=== PATIENT | male | born 1970 | race American Indian/Alaskan Native ===

== ENCOUNTER 2021-10-11 07:10 | Inpatient (IN) ==
[2021-10-11] MEDS ORDERED: ONDANSETRON 4 MG/2 ML VIAL IV PRN (08:37)
[2021-10-11] MEDS ORDERED: BISACODYL 10 MG SUPP.RECT PR PRN (08:37)
[2021-10-11] MEDS ORDERED: POLYETHYLENE GLYCOL 3350 17 GM PACKET PO PRN (08:37)
[2021-10-11] MEDS ORDERED: ACETAMINOPHEN 650 MG/65 ML BAG IV PRN (08:37)
[2021-10-11] MEDS ORDERED: ONDANSETRON 4 MG ODT TABLET SL PRN (08:37)
[2021-10-11] MEDS ORDERED: MELATONIN 3 MG TABLET PO PRN (08:37)
--- NOTE | 2021-10-11 08:47 | Nephrology Consult Note ---
HPI Data of Consult Patient: known to practice within the last 3 years Consult date: 10/11/21 Requesting physician: Jose Elias Sanders Primary Care Provider: Eugenie Guerrero Consult Narrative Patient Information: Note initiated : 10/11/21 at 8:41 am Patient: Maynor Salmon 51 y/o M admitted on 10/11/21 for SOB, Volume Overload. Maynor Salmon is a 51-year-old male with end stage renal disease on hemodialysis, chronic anemia due to ESRD, hypertension, diabetes mellitus type 2 presented to [facility] for shortness of breath. In ED, he required BIPAP for hy poxia. CXR showed pulmonary edema. He was transferred to [facility] for hemodialysis. Nephrology consultation was requested for end stage renal disease. Chief complaint: Shortness of breath Reason for consult: End stage renal disease on hemodialysis cc:: CC: Jose Elias Sanders Constitutional Constitutional: Present weakness; Absent fever(s) EENT Nose, mouth and throat: Absent nasal discharge or sore throat Cardiovascular Cardiovascular: Absent chest pain or palpatations Respiratory Respiratory: Present cough and dyspnea Gastrointestinal Gastrointestinal: Absent abdominal pain or nausea Integumentary Integumentary: Absent rash or wounds Neurological Neurological: Absent confusion Psychiatric Psychiatric: Absent anxiety or panic attacks Hematologic/Lymphatic Hematologic/Lymphatic: Absent easy bleeding or easy bruising Allergic/Immunologic Allergic/Immunologic: Absent tongue swelling or uticaria PFSH PFSH All Active Problems (Updated 10/11/21 @ 08:32 by To Larose MD) Pulmonary edema (Acute) Viral syndrome (Acute) Hx-sudden cardiac arrest (Chronic ~2017) Chest pain (Acute) Non-STEMI (non-ST elevated myocardial infarction) (Acute) Chest pain, atypical (Acute) Status post non-ST elevation myocardial infarction (NSTEMI) (Acute) ESRD (end stage renal disease) on dialysis (Chronic) Anemia, chronic renal failure (Acute) Arteriovenous fistula (Acute) Secondary hyperparathyroidism of renal origin (Chronic) History of bladder repair surgery (Acute) Urinary retention (Chronic 08/30/14) Tobacco abuse (Acute) UTI (urinary tract infection) (Chronic) Neurogenic bladder (Chronic) Metabolic acidosis (Chronic) Hypertension, essential (Acute) Hyperparathyroidism, secondary renal (Chronic) Foot pain (Acute) Depressive disorder (Acute) Back pain (Acute) Medical History Acute respiratory failure (~2017) Back pain Occasional Chronic kidney disease (CKD), stage IV (severe) Chronic kidney disease, stage V Depressive disorder Approx 3 years - lasting 1-3 days/ once a month Foot pain Left foot pain intermittent Hyperkalemia Hyperparathyroidism, secondary renal Hypertension, essential Hypertensive renal disease Metabolic acidosis MSSA (methicillin susceptible Staphylococcus aureus) septicemia Neurogenic bladder has recurrent UTI ct follow up with urology imp to do self cath's as recommended Pyelonephritis Patient stated that he has had 1-2 kidney infections Secondary hyperparathyroidism of renal origin Tobacco abuse Urinary retention (08/30/14) ct self intermittent cathertorisation recheck renal US UTI (urinary tract infection) recurrent UTI cath regularly, use clean technique to do so complete augmentin Surgical History Arteriovenous fistula 08/04/2015-[facility], right brachiocephalic arteriovenous fistula History of angioplasty of vein (12/23/15) Fistulogram (AV Shunt.Dialysis); US Guided vascular access; Angioplasty- Venous History of bladder repair surgery Age 5-6 Family History Brother Family history of other blood disorders Blood Dyscrasia (thrombocytopenia) Social History household members: spouse lives independently: Yes marital status: occupational status: employed occupation: [employer] other: Has 4 children alcohol intake frequency: 2+ drinks per day substance use type: does not use MEDS/ALLERGIES Home Medications and Allergies Home Medications Medication Instructions Recorded Confirmed Type omeprazole 20 mg capsule,delayed 20 mg PO BID cap 06/08/17 12/15/19 History release quetiapine 100 mg tablet (Seroquel) 100 mg PO QHS tab 06/08/17 12/15/19 History atorvastatin 40 mg tablet 40 mg PO QDAY 07/05/17 12/15/19 History docusate sodium 100 mg capsule 200 mg PO BID cap 07/05/17 12/15/19 History folic acid 400 mcg tablet 0.4 mg PO QDAY 12/15/19 12/15/19 History isosorbide mononitrate 30 mg 30 mg PO QAM 12/15/19 12/15/19 History tablet,extended release 24 hr vitamin B complex (B 1 tab PO QDAY 12/15/19 12/15/19 History Complex-Vitamin B12) acetaminophen 325 mg capsule 325 mg PO Q4H PRN cap 02/26/20 History aspirin 81 mg tablet,delayed 81 mg PO QDAY 02/26/20 History release calcitriol 0.25 mcg capsule 0.25 mcg PO 3XW 02/26/20 History heparin (porcine) 1,000 unit/mL IV 3XW ml 02/26/20 History injection solution hydroxyzine HCl 10 mg tablet 10 mg PO Q6H PRN tab 02/26/20 History loperamide 2 mg capsule 4 mg PO 3XW PRN cap 02/26/20 History (Anti-Diarrheal (loperamide)) ondansetron HCl 2 mg/mL 4 mg IM ONCE PRN ml 02/26/20 History intravenous solution sodium ferric gluconate complex in 62.5 mg IV QWEEK ml 02/26/20 History sucrose 62.5 mg/5 mL intravenous (Ferrlecit) ergocalciferol (vitamin D2) 1,250 1,250 mcg PO Q2W #13 cap 10/31/20 Rx mcg (50,000 unit) capsule apixaban 5 mg tablet 5 mg PO BID #60 tab 02/23/21 Rx vitamin B complex-vitamin C-folic 1 tab PO QDAY #90 tab 03/22/21 Rx acid 0.8 mg tablet (Nephro-Darrian) losartan 100 mg tablet 100 mg PO QDAY #90 tab 04/03/21 Rx sevelamer carbonate 800 mg tablet 800 mg PO TID #270 tab 04/21/21 Rx (Renvela) calcium acetate(phosphat bind) 667 667 mg PO TID #90 cap 06/26/21 Rx mg capsule varenicline 0.5 mg tablet 0.5 mg PO QDAY #30 tab 07/26/21 Rx torsemide 20 mg tablet 20 mg PO QDAY #90 tab 08/07/21 Rx amlodipine 10 mg tablet 10 mg PO QDAY #90 tab 09/04/21 Rx Allergies Allergy/AdvReac Type Severity Reaction Status Date / Time No Known Drug Allergies Allergy Verified 03/27/21 16:36 Physical Examination Vital Signs Vital signs: Temp Pulse Resp BP Pulse Ox 97.5 F 79 18 156/95 100 10/11/21 08:30 10/11/21 08:34 10/11/21 08:34 10/11/21 08:30 10/11/21 08:34 General Appearance General appearance: well-developed, well-nourished, appears started age and an xious EENT EENT: mucous membranes dry Respiratory Respiratory: course breath sounds Cardiovascular Cardiology: edema, regular rate and regular rhythm Gastrointestinal Gastrointestinal: no tenderness and no guarding Integumentary Integumentary: no rash Neurologic Neurologic: no focal deficit and alert and oriented x3 Musculoskeletal Musculoskeletal: no deformities Psychiatric Psychiatric: mood/affect appropriate and cooperative A/P Assessment and plan (1) ESRD (end stage renal disease) on dialysis: Assessment and plan: Maynor Salmon is a 51-year-old male with end stage renal disease on hemodialysis, chronic anemia due to ESRD, hypertension, diabetes mellitus type 2 presented to [facility] for shortness of breath. In ED, he required BIPAP for hypoxia. CXR showed pulmonary edema. He was transferred to [facility] for hemodialysis. Nephrology consultation was requested for end stage renal diseas e. End stage renal disease on hemodialysis. Chronic anemia due to ESRD. Acute hypoxic respiratory failure due to acute pulmonary edema requiring BIPAP. Recommendations/Plan: Hemodialysis today for 4 hours with 4-5 kg UF target. The patient is seen and evaluated during hemodialysis at 10:40. Status: Chronic (2) Pulmonary edema: Status: Acute Time Spent With Patient Time: Total time spent is greater than 50% in coordination of care (as documented) at patient's floor/unit and/or counseling patient:
[2021-10-11] MEDS: DOCUSATE SODIUM 100 MG CAPSULE PO SCH ×2 (09:18→21:20)
[2021-10-11] MEDS: MULTIVIT,THER IRON,CA,FA & MIN 1 TABLET PO SCH (09:19)
--- NOTE | 2021-10-11 09:21 | Internal Med History&Physical ---
HPI History of Present Illness Patient information: Note initiated : 10/11/21 at 9:10 am Service Date, if different from initiated Date: [] Patient: Maynor Salmon a 51 y/o M admitted on 10/11/21 for SOB, Volume Overload. Chief Complaint: [] Chief complaint: Shortness of breath History of present illness: Mr. Salmon is a 51 year old M with history of ESRD on HD secondary to chronic VUR sequela, CAD status post NSTEMI/cardiac arrest 2017, HTN, HLD, who presents to the ER after starting to experience sudden worsening shortness of breath that started around 230 this morning. Symptoms dramatically progressed prompting him to come to the ER for evaluation. Initial work-up essentially was ear was consistent with hypertensive crisis with blood pressure over 200, pulmonary edema on chest imaging. Patient was hypoxic and was started on noninvasive ventilation for increased work of breathing and hypoxia. Additionally started on nitro drip and subsequently nephrology was consulted who accepted patient for urgent hemodialysis His last hemodialysis was 2 days ago. Patient denies changes in medication, missing his regular medications, fever, chills, productive sputum. Hospitalist service at [facility] was consulted due to lack of availability of dialysis at [place]. Patient received at [facility] via ground ambulance in stable state on nitro drip. Blood pressure 140. Currently on BiPAP. Doing a lot better and able to talk in near full sentences. Emergent hemodialysis being set up. He was able to endorse history as above and denies diarrhea, bloody stool, headache, myalgia or joint pain Review of systems 10 point review system was performed and is negative except as above PFSH PFSH All Active Problems (Updated 10/11/21 @ 08:32 by To Larose MD) Pulmonary edema (Acute) Viral syndrome (Acute) Hx-sudden cardiac arrest (Chronic ~2017) Chest pain (Acute) Non-STEMI (non-ST elevated myocardial infarction) (Acute) Chest pain, atypical (Acute) Status post non-ST elevation myocardial infarction (NSTEMI) (Acute) ESRD (end stage renal disease) on dialysis (Chronic) Anemia, chronic renal failure (Acute) Arteriovenous fistula (Acute) Secondary hyperparathyroidism of renal origin (Chronic) History of bladder repair surgery (Acute) Urinary retention (Chronic 08/30/14) Tobacco abuse (Acute) UTI (urinary tract infection) (Chronic) Neurogenic bladder (Chronic) Metabolic acidosis (Chronic) Hypertension, essential (Acute) Hyperparathyroidism, secondary renal (Chronic) Foot pain (Acute) Depressive disorder (Acute) Back pain (Acute) Medical History Acute respiratory failure (~2016) Back pain Occasional Chronic kidney disease (CKD), stage IV (severe) Chronic kidney disease, stage V Depressive disorder Approx 3 years - lasting 1-3 days/ once a month Foot pain Left foot pain intermittent Hyperkalemia Hyperparathyroidism, secondary renal Hypertension, essential Hypertensive renal disease Metabolic acidosis MSSA (methicillin susceptible Staphylococcus aureus) septicemia Neurogenic bladder has recurrent UTI ct follow up with urology imp to do self cath's as recommended Pyelonephritis Patient stated that he has had 1-2 kidney infections Secondary hyperparathyroidism of renal origin Tobacco abuse Urinary retention (08/30/14) ct self intermittent cathertorisation recheck renal US UTI (urinary tract infection) recurrent UTI cath regularly, use clean technique to do so complete augmentin Surgical History Arteriovenous fistula 08/04/2015-[facility], right brachiocephalic arteriovenous fistula History of angioplasty of vein (12/23/15) Fistulogram (AV Shunt.Dialysis); US Guided vascular access; Angioplasty- Venous History of bladder repair surgery Age 5-6 Family History Brother Family history of other blood disorders Blood Dyscrasia (thrombocytopenia) Social History household members: spouse lives independently: Yes marital status: occupational status: employed occupation: [employer] other: Has 4 children alcohol intake frequency: 2+ drinks per day substance use type: does not use MEDS/ALLERGIES Home Medications and Allergies Home Medications Medication Instructions Recorded Confirmed Type omeprazole 20 mg capsule,delayed 20 mg PO BID cap 06/08/17 10/11/21 History release quetiapine 100 mg tablet (Seroquel) 100 mg PO QHS tab 06/08/17 10/11/21 History atorvastatin 40 mg tablet 40 mg PO QDAY 07/05/17 10/11/21 History isosorbide mononitrate 30 mg 30 mg PO QAM 12/15/19 10/11/21 History tablet,extended release 24 hr vitamin B complex-vitamin C-folic 1 tab PO QDAY #90 tab 03/22/21 10/11/21 Rx acid 0.8 mg tablet (Nephro-Darrian) losartan 100 mg tablet 100 mg PO QDAY #90 tab 04/03/21 10/11/21 Rx sevelamer carbonate 800 mg tablet 800 mg PO TID #270 tab 04/21/21 10/11/21 Rx (Renvela) calcium acetate(phosphat bind) 667 667 mg PO TID #90 cap 06/26/21 10/11/21 Rx mg capsule torsemide 20 mg tablet 20 mg PO QDAY #90 tab 08/07/21 10/11/21 Rx amlodipine 10 mg tablet 10 mg PO QDAY #90 tab 09/04/21 10/11/21 Rx apixaban 5 mg tablet 2.5 mg PO BID 10/11/21 10/11/21 History Allergies Allergy/AdvReac Type Severity Reaction Status Date / Time No Known Drug Allergies Allergy Verified 03/27/21 16:36 EXAM Constitutional Vitals: Temp Pulse Resp BP Pulse Ox 97.5 F 83 19 156/95 99 10/11/21 08:30 10/11/21 08:45 10/11/21 08:45 10/11/21 08:30 10/11/21 08:45 Head normocephalic Oral cavity moist No ear or nose discharge Eye no subconjunctival pallor, movement symmetrical S1-S2 occasionally irregular tachycardia Labored breathing now on BiPAP 30% FiO2. Basilar crackles Nondistended nontender abdomen Right upper extremity AV access, lower extremity no cyanosis clubbing or joint swelling Skin no suspicious lesion Psych anxious but no hallucination Neuro normal higher function on limited neuro exam A/P Narrative A/P Narrative: * Flash pulmonary edema-secondary volume overload, emergent hemodialysis per nephrology * Acute respiratory failure with hypoxia currently on noninvasive ventilation/supplemental oxygen secondary to flash pulmonary edema * Hypertensive crisis with pul edema, on nitro drip, start home dose amlodipine/isosorbide * History of CAD on isosorbide/statin/aspirin/apixaban * GERD on PPI * Anxiety disorder continue quetiapine * Tobacco dependence with over 30 pack history of smoking. * Full code Plan * Inpatient admission * Urgent hemodialysis/nephrology consult * Nitro drip target SBP ~160 * Noninvasive ventilation * Pre-existing medical condition management on home medication Critical time spent in excess of 35 minutes on management of hypoxic respiratory failure/flash pulm edema Time Spent With Patient Time: Total time spent is greater than 50% in coordination of care (as documented) at patient's floor/unit and/or counseling patient: Total time spent with greater than 50% in coordination of care (as documented) at patient's floor/unit and/or counseling patient:: Greater than 70 minutes Total Critical Care Time: 35
[2021-10-11] MEDS: 0.9 % SODIUM CHLORIDE 10 ML SYRINGE IV SCH ×2 (13:26→21:20)
[2021-10-11] MEDS: SEVELAMER 800 MG TABLET PO SCH (17:19)
[2021-10-11] MEDS: CALCIUM ACETATE 667 MG CAPSULE PO SCH (17:19)
[2021-10-11 18:28] LABS: ALT/SGPT 14 U/L (<40); AST/SGOT 23 U/L (<40); Albumin 3.6 gm/dL (3.2-5.2); Albumin/Globulin Ratio 1.3 (1.0-2.3); Alkaline Phosphatase 148 U/L (39-117); Bilirubin,Direct < 0.2 mg/dL (0-0.3); Bilirubin,Total 0.4 mg/dL (0.1-1.0); Blood Urea Nitrogen 8 mg/dL (6-20); Calcium 8.9 mg/dL (8.6-10.4); Carbon Dioxide 27 mmol/L (22-30); Chloride 93 mmol/L (96-108); Globulin 2.8 gm/dL (2.2-3.7); Glomerular Filtration Rate 17; Glucose 122 mg/dL (70-105); Lactate Dehydrogenase 244 U/L (135-225); Phosphorous 2.5 mg/dL (2.5-4.5); Triglycerides 51 mg/dL (<150); Uric Acid 2.2 mg/dL (2.5-8.0)
[2021-10-11] MEDS: ACETAMINOPHEN 325 MG TABLET PO PRN (18:28)
[2021-10-11] MEDS: QUEtiapine 100 MG TABLET PO SCH (21:20)
[2021-10-11] MEDS: OMEPRAZOLE 20 MG CAPSULE PO SCH (21:20)
[2021-10-11] MEDS: SENNOSIDES/DOCUSATE SODIUM 1 TAB TABLET PO SCH (21:20)
[2021-10-11] MEDS: APIXABAN 5 MG TABLET PO SCH (21:20)
[2021-10-12] MEDS: 0.9 % SODIUM CHLORIDE 10 ML SYRINGE IV SCH ×3 (05:27→21:08)
[2021-10-12 06:43] LABS: Basophils # (Auto) 0.07 K/mcL (0.00-0.30); Basophils % (Auto) 1.2 % (0.0-2.0); Eosinophils % (Auto) 6.9 % (0.0-7.0); Hematocrit 31.6 % (40.1-51.0); Lymphocytes # (Auto) 1.43 K/mcL (1.50-4.80); Lymphocytes % (Auto) 24.6 % (15.5-49.0); Mean Cell Volume 97.2 fL (80.0-100.0); Mean Corpuscular HGB Conc 31.6 g/dL (31.0-36.0); Mean Platelet Volume 9.7 fL (7.4-10.4); Monocytes # (Auto) 0.75 K/mcL (0.10-0.90); Monocytes % (Auto) 12.9 % (1.0-12.0); Neutrophils % (Auto) 54.4 % (38.0-78.0); Platelet Count 215 K/mcL (140-440); RBC 3.25 M/mcL (4.63-6.08); Red Cell Distribution Width 13.4 % (11.5-14.5); WBC 5.8 K/mcL (4.5-11.0)
[2021-10-12] MEDS: ACETAMINOPHEN 325 MG TABLET PO PRN ×2 (07:23→15:06)
[2021-10-12 07:24] LABS: ALT/SGPT 13 U/L (<40); AST/SGOT 18 U/L (<40); Albumin 3.1 gm/dL (3.2-5.2); Albumin/Globulin Ratio 1.2 (1.0-2.3); Alkaline Phosphatase 131 U/L (39-117); Bilirubin,Direct < 0.2 mg/dL (0-0.3); Bilirubin,Total 0.3 mg/dL (0.1-1.0); Blood Urea Nitrogen 13 mg/dL (6-20); Calcium 8.7 mg/dL (8.6-10.4); Carbon Dioxide 25 mmol/L (22-30); Chloride 93 mmol/L (96-108); Globulin 2.6 gm/dL (2.2-3.7); Glomerular Filtration Rate 12; Glucose 99 mg/dL (70-105); Lactate Dehydrogenase 269 U/L (135-225); Phosphorous 3.7 mg/dL (2.5-4.5); Triglycerides 73 mg/dL (<150); Uric Acid 2.9 mg/dL (2.5-8.0)
[2021-10-12] MEDS: DOCUSATE SODIUM 100 MG CAPSULE PO SCH ×2 (08:40→21:03)
[2021-10-12] MEDS: OMEPRAZOLE 20 MG CAPSULE PO SCH ×2 (08:40→21:04)
[2021-10-12] MEDS: MULTIVIT,THER IRON,CA,FA & MIN 1 TABLET PO SCH (08:40)
[2021-10-12] MEDS: LOSARTAN 50 MG TABLET PO SCH (08:40)
[2021-10-12] MEDS: SEVELAMER 800 MG TABLET PO SCH ×3 (08:40→17:20)
[2021-10-12] MEDS: CALCIUM ACETATE 667 MG CAPSULE PO SCH ×3 (08:40→17:20)
[2021-10-12] MEDS: TORSEMIDE 20 MG TABLET PO SCH (08:41)
[2021-10-12] MEDS: ISOSORBIDE MONONITRATE 30 MG TAB.XL.24H PO SCH (08:41)
[2021-10-12] MEDS: ATORVASTATIN 40 MG TABLET PO SCH (08:41)
[2021-10-12] MEDS: APIXABAN 5 MG TABLET PO SCH ×2 (08:41→21:03)
[2021-10-12] MEDS: FOLIC ACID/VITAMIN B COMP W-C 1 TAB TABLET PO SCH (08:41)
[2021-10-12] MEDS: amLODIPine 10 MG TABLET PO SCH (08:41)
--- NOTE | 2021-10-12 10:43 | Internal Med Progress Note ---
SUBJECTIVE Subjective Patient information: Note initiated : 10/12/21 at 10:39 am Service Date, if different from initiated Date: [] Patient: Maynor Salmon a 51 y/o M admitted on 10/11/21 for SOB, Volume Overload. Chief Complaint: [] Interval history: Mr. Salmon is a 51 year old M with history of ESRD on HD secondary to chronic VUR sequela, CAD status post NSTEMI/cardiac arrest 2016, HTN, HLD, who presents to the ER after starting to experience sudden worsening shortness of breath that started around 230 this morning. Symptoms dramatically progressed prompting him to come to the ER for evaluation. Initial work-up essentially was ear was consistent with hypertensive crisis with blood pressure over 200, pulmonary edema on chest imaging. Patient was hypoxic and was started on noninvasive ventilation for increased work of breathing and hypoxia. Additionally started on nitro drip and subsequently nephrology was consulted who accepted patient for urgent hemodialysis His last hemodialysis was 2 days ago. Patient denies changes in medication, missing his regular medications, fever, chills, productive sputum. Hospitalist service at [facility] was consulted due to lack of availability of dialysis at [place]. Patient received at [facility] via ground ambulance in stable state on nitro drip. Blood pressure 140. Currently on BiPAP. Doing a lot better and able to talk in near full sentences. Emergent hemodialysis being set up. He was able to endorse history as above and denies diarrhea, bloody stool, headache, myalgia or joint pain 10/12-patient doing a lot better. No overnight events. No concerns per nursing staff, dialyzed in excess of 5000 cc removed. Now on 2 L oxygen. Off nitro drip. Hemodynamics have stabilized. This morning denies chest pain, lightheadedness dizziness. Able to ambulate. Anticipate discharge in 24 hours with continued hemodialysis. Case discussed with nephrology. Systolics around 150. Constitutional Vitals: Vital Signs Temp Pulse Resp BP Pulse Ox 97.8 F 87 24 H 149/93 90 10/12/21 08:06 10/12/21 10:01 10/12/21 10:01 10/12/21 10:01 10/12/21 10:01 Period Temp Pulse Resp BP Sys/Smiley Pulse Ox Last 24 Hr 97.2 F-98.3 F 44-102 11-37 127-182/69-103 87-100 Intake and Output 04/27/22 04/28/22 04/28/22 21:59 05:59 13:59 Intake Total 240 480 Output Total 0 0 Balance 240 0 480 Weight 83.688 kg Alert oriented Nonlabored breathing on 2 L oxygen Right anterior chest temporalis catheter Right upper extremity fistula No lymphedema No anxiety Intake & Output: Intake & Output 10/11/21 10/12/21 10/12/21 21:59 05:59 13:59 Intake Total 240 480 Output Total 0 0 Balance 240 0 480 Weight 83.688 kg Intake: Oral 240 480 Output: Void Amount 0 0 Other: Meal Lunch Percent of Meal Consumed 100% Feeding Ability Independent OBJ DATA Labs CBC & Chem 7: 10/12/21 05:36 10/12/21 05:36 Labs: Abnormal Lab Results 10/12/21 10/12/21 10/11/21 05:36 05:36 17:35 RBC 3.25 L Hgb 10.0 L Hct 31.6 L [place] % (Auto) 12.9 H Lymph # (Auto) 1.43 L Sodium 129 L 131 L Chloride 93 L 93 L Creatinine 5.1 H* 3.9 H Glucose 122 H Uric Acid 2.2 L Alkaline Phosphatase 131 H 148 H Lactate Dehydrogenase 269 H 244 H Total Protein 5.7 L Albumin 3.1 L Meds: Medications Acetaminophen (Acetaminophen 325 Mg Tablet) 650 mg PO Q4-6HP PRN; Protocol PRN Reason: Per Pain Protocol/Fever > 101 Last Admin: 10/12/21 07:23 Dose: 650 mg Documented by: Amlodipine Besylate (Amlodipine 10 Mg Tablet) 10 mg PO QDAY [facility] Last Admin: 10/12/21 08:41 Dose: 10 mg Documented by: Apixaban (Apixaban 5 Mg Tablet) 2.5 mg PO BID [facility] Last Admin: 10/12/21 08:41 Dose: 2.5 mg Documented by: Atorvastatin Calcium (Atorvastatin 40 Mg Tablet) 40 mg PO QDAY [facility] Last Admin: 10/12/21 08:41 Dose: 40 mg Documented by: Bisacodyl (Bisacodyl 10 Mg Supp.Rect) 10 mg NM Q2-3DAYS PRN PRN Reason: Constipation Calcium Acetate (Calcium Acetate 667 Mg Capsule) 667 mg PO TIDCC [facility] Last Admin: 10/12/21 08:40 Dose: 667 mg Documented by: Docusate Sodium (Docusate Sodium 100 Mg Capsule) 100 mg PO BID [facility] Last Admin: 10/12/21 08:40 Dose: 100 mg Documented by: Acetaminophen (Ofirmev) 650 mg in 65 mls @ 130 mls/hr IV Q6HP PRN; Protocol PRN Reason: Per Pain Protocol/Fever > 101 Iron Carb/Multivit/[place]/Folic Acid (Multivit,Ther Iron,Ca,Fa & Min 1 Tablet) 1 tab PO DAILY [facility] Last Admin: 10/12/21 08:40 Dose: 1 tab Documented by: Isosorbide Mononitrate (Isosorbide Mononitrate 30 Mg Tab.Xl.24h) 30 mg PO QAM [facility] Last Admin: 10/12/21 08:41 Dose: 30 mg Documented by: Losartan Potassium (Losartan 50 Mg Tablet) 100 mg PO DAILY [facility] Last Admin: 10/12/21 08:40 Dose: 100 mg Documented by: Melatonin (Melatonin 3 Mg Tablet) 3 mg PO HSP PRN PRN Reason: Insomnia Multivit/Ca Carb/B Cmplx/FA/Prenat (Folic Acid/Vitamin B Comp W-C 1 Tab Tablet) 1 tab PO DAILY [facility] Last Admin: 10/12/21 08:41 Dose: 1 tab Documented by: Omeprazole (Omeprazole 20 Mg Capsule) 20 mg PO BID [facility] Last Admin: 10/12/21 08:40 Dose: 20 mg Documented by: Ondansetron HCl (Ondansetron 4 Mg Odt Tablet) 4 mg SL Q4-6HP PRN; Protocol PRN Reason: Nausea And Vomiting Ondansetron HCl (Ondansetron 4 Mg/2 Ml Vial) 4 mg IV Q4-6HP PRN; Protocol PRN Reason: Nausea And Vomiting Polyethylene Glycol (Polyethylene Glycol 3350 17 Gm Packet) 17 gm PO DAILYP PRN PRN Reason: Constipation Quetiapine Fumarate (Quetiapine 100 Mg Tablet) 100 mg PO QHS [facility] Last Admin: 10/11/21 21:20 Dose: 100 mg Documented by: Senna/Docusate Sodium (Sennosides/Docusate Sodium 1 Tab Tablet) 1 tab PO HS [facility] Last Admin: 10/11/21 21:20 Dose: Not Given Documented by: Sevelamer Carbonate (Sevelamer 800 Mg Tablet) 800 mg PO TIDCC [facility] Last Admin: 10/12/21 08:40 Dose: 800 mg Documented by: Sodium Chloride (0.9 % Sodium Chloride 10 Ml Syringe) 10 ml IV Q8 [facility] Last Admin: 10/12/21 05:27 Dose: 10 ml Documented by: Torsemide (Torsemide 20 Mg Tablet) 20 mg PO QDAY [facility] Last Admin: 10/12/21 08:41 Dose: 20 mg Documented by: A/P Narrative A/P Narrative: * Flash pulmonary edema-secondary volume overload, dramatic clinical improvement following hemodialysis and fluid removal, advised to minimize fluid intake in between dialysis * Acute respiratory failure with hypoxia, off NIV, on 2 L oxygen and weaning as tolerated. * Hypertensive crisis with pul edema, clinically resolved. Off nitro drip. Back on home dose antihypertensives * History of CAD on isosorbide/statin/aspirin/apixaban * GERD on PPI * Anxiety disorder continue quetiapine * Tobacco dependence with over 30 pack history of smoking. * Full code Plan * Wean oxygen as tolerated * Continue HD per nephrology * Pre-existing medical condition management home medications * Nutrition support/discharge planning Time Spent With Patient Time: Total time spent is greater than 50% in coordination of care (as documented) at patient's floor/unit and/or counseling patient:
--- NOTE | 2021-10-12 17:50 | Nephrology Progress Note ---
SUBJECTIVE Subjective Patient information: Note initiated : 10/12/21 at 5:50 pm Service Date, if different from initiated Date: [] Patient: Maynor Salmon 51 y/o M admitted on 10/11/21 for SOB, Volume Overload. Chief Complaint: sob[] Principal diagnosis: ESRD, Pulmonary edema Interval history: Maynor Salmon is a 51-year-old male with end stage renal disease on hemodialysis, chronic anemia due to ESRD, hypertension, diabetes mellitus type 2 presented to [facility] ED for shortness of breath. In ED, he required BIPAP for hypoxia. CXR showed pulmonary edema. He was transferred to [facility] for hemodialysis. Nephrology consultation was requested for end stage renal disease. Yesterday underwent dialysis with removal 5 kg of fluid and resolution of his shortness of breath. He was transferred out of the unit And is due for dialysis tomorrow Laboratory Tests 10/12/21 05:36 Sodium 129 L Potassium 4.7 Chloride 93 L Carbon Dioxide 25 Anion Gap 11.0 BUN 13 Creatinine 5.1 H* Glucose 99 Calcium 8.7 Phosphorus 3.7 Magnesium 2.4 Total Bilirubin 0.3 GGT 37 AST 18 ALT 13 Alkaline Phosphatase 131 H Lactate Dehydrogenase 269 H Total Protein 5.7 L Albumin 3.1 L 10/12/21 05:36 WBC 5.8 Hgb 10.0 L Hct 31.6 L MCV 97.2 Plt Count 215 Eos % (Auto) 6.9 Pertinent ROS: Nothing to add Additional PMFSH (Level 3 Only): N/A Constitutional Vitals: Vital Signs Temp Pulse Resp BP Pulse Ox 36.4 C 86 18 149/82 88 L 10/12/21 12:01 10/12/21 12:04 10/12/21 12:04 10/12/21 12:01 10/12/21 12:04 Period Temp Pulse Resp BP Sys/Smiley Pulse Ox Last 24 Hr 36.4 C-36.8 C 44-102 11-37 127-165/69-95 87-100 Intake and Output 10/12/21 10/12/21 10/12/21 05:59 13:59 21:59 Intake Total 840 Output Total 0 Balance 0 840 Weight 83.688 kg Patient Weight 10/13/21 05:59 Weight 83.688 kg Intake & Output: Intake & Output 10/12/21 10/12/21 10/12/21 05:59 13:59 21:59 Intake Total 840 Output Total 0 Balance 0 840 Weight 83.688 kg Intake: Oral 840 Output: Void Amount 0 Other: Meal Breakfast Percent of Meal Consumed 100% Feeding Ability Independent Exam: Frail Head Head exam: Present normal inspection Eye Eye exam: Present PERRL; Absent scleral icterus ENT ENT exam: Present mucous membranes moist Neck Neck exam: Absent meningismus Respiratory Respiratory exam: Present decreased breath sounds Additional comments: cough Cardiovascular Cardiovascular exam: Present +S1 and +S2; Absent rubs GI/Abdominal GI/Abdominal exam: Present soft and diminished bowel sounds Extremities Exam Extremities exam: Present pedal edema (trace) Additional comments: Right upper arm AVF with recent revision, Neurological Exam Neurological exam: Present CN II-XII intact Psychiatric Psychiatric exam: Present flat affect Skin Skin exam: Absent rash Additional comments: Scattered ecchymoses A/P Assessment and plan (1) ESRD (end stage renal disease) on dialysis: Status: Chronic Comment: Next HD treatment tomorrow (2) Pulmonary edema: Status: Acute Comment: Agressive fluid removal and update dry weight. In HD EMR 85 but patient recalls 86.5 Wonder about high putput HD with great fistula that could have up to 1liter of flow (cardiac output) thats going nowehere (3) Hyperparathyroidism, secondary renal: Plan: Monitor calcium phosphorus and PTH level Status: Chronic Plan HD tomorrow CXR post HD New dry weight 85 kg Narrative A/P Narrative: As above Time Spent With Patient Time: Total time spent is greater than 50% in coordination of care (as documented) at patient's floor/unit and/or counseling patient: Total time spent with greater than 50% in coordination of care (as documented) at patient's floor/unit and/or counseling patient:: 15 - 24 minutes Attestation: Sergio Vargas
[2021-10-12] MEDS: QUEtiapine 100 MG TABLET PO SCH (21:04)
[2021-10-12] MEDS: SENNOSIDES/DOCUSATE SODIUM 1 TAB TABLET PO SCH (21:04)
[2021-10-13 06:43] LABS: Basophils # (Auto) 0.05 K/mcL (0.00-0.30); Basophils % (Auto) 0.8 % (0.0-2.0); Eosinophils # (Auto) 0.45 K/mcL (0.00-0.70); Eosinophils % (Auto) 6.9 % (0.0-7.0); Hematocrit 29.8 % (40.1-51.0); Hemoglobin 9.8 g/dL (13.7-17.5); Lymphocytes # (Auto) 1.35 K/mcL (1.50-4.80); Lymphocytes % (Auto) 20.8 % (15.5-49.0); Mean Corpuscular HGB Conc 32.9 g/dL (31.0-36.0); Mean Platelet Volume 9.6 fL (7.4-10.4); Monocytes # (Auto) 0.73 K/mcL (0.10-0.90); Monocytes % (Auto) 11.3 % (1.0-12.0); Neutrophils % (Auto) 60.2 % (38.0-78.0); Platelet Count 204 K/mcL (140-440); RBC 3.17 M/mcL (4.63-6.08); WBC 6.5 K/mcL (4.5-11.0)
[2021-10-13 07:48] LABS: ALT/SGPT 11 U/L (<40); AST/SGOT 14 U/L (<40); Albumin 3.2 gm/dL (3.2-5.2); Albumin/Globulin Ratio 1.2 (1.0-2.3); Alkaline Phosphatase 128 U/L (39-117); Bilirubin,Direct < 0.2 mg/dL (0-0.3); Bilirubin,Total 0.3 mg/dL (0.1-1.0); Blood Urea Nitrogen 26 mg/dL (6-20); Calcium 8.8 mg/dL (8.6-10.4); Carbon Dioxide 23 mmol/L (22-30); Chloride 90 mmol/L (96-108); Globulin 2.7 gm/dL (2.2-3.7); Glomerular Filtration Rate 7; Glucose 87 mg/dL (70-105); Lactate Dehydrogenase 220 U/L (135-225); Phosphorous 4.4 mg/dL (2.5-4.5); Triglycerides 68 mg/dL (<150); Uric Acid 3.9 mg/dL (2.5-8.0)
[2021-10-13] MEDS: FOLIC ACID/VITAMIN B COMP W-C 1 TAB TABLET PO SCH (07:54)
[2021-10-13] MEDS: CALCIUM ACETATE 667 MG CAPSULE PO SCH (07:54)
[2021-10-13] MEDS: 0.9 % SODIUM CHLORIDE 10 ML SYRINGE IV SCH (07:54)
[2021-10-13] MEDS: ISOSORBIDE MONONITRATE 30 MG TAB.XL.24H PO SCH (07:54)
[2021-10-13] MEDS: LOSARTAN 50 MG TABLET PO SCH (07:55)
[2021-10-13] MEDS: MULTIVIT,THER IRON,CA,FA & MIN 1 TABLET PO SCH (07:55)
[2021-10-13] MEDS: APIXABAN 5 MG TABLET PO SCH (07:55)
[2021-10-13] MEDS: SEVELAMER 800 MG TABLET PO SCH (07:55)
[2021-10-13] MEDS: DOCUSATE SODIUM 100 MG CAPSULE PO SCH (07:55)
[2021-10-13] MEDS: TORSEMIDE 20 MG TABLET PO SCH (07:55)
[2021-10-13] MEDS: ATORVASTATIN 40 MG TABLET PO SCH (07:55)
[2021-10-13] MEDS: amLODIPine 10 MG TABLET PO SCH (07:56)
[2021-10-13] MEDS: OMEPRAZOLE 20 MG CAPSULE PO SCH (07:56)
--- NOTE | 2021-10-13 08:09 | Discharge Summary ---
Discharge Provider Provider Patient information: Note initiated : 10/13/21 at 8:08 am Service Date, if different from initiated Date: [] Patient: Maynor Salmon 51 y/o M admitted on 10/11/21 for SOB, Volume Overload. Chief Complaint: [] Date of admission: 10/11/21 08:17 Discharge date: 10/13/21 Primary care physician: Eugenie Guerrero Discharge Meds Discharge Medications Home Medications omeprazole 20 mg capsule,delayed release 20 mg PO BID cap 06/08/17 [History Confirmed 10/11/21 Last Taken Unknown] quetiapine 100 mg tablet (Seroquel) 100 mg PO QHS tab 06/08/17 [History Confirmed 10/11/21 Last Taken Unknown] atorvastatin 40 mg tablet 40 mg PO QDAY 07/05/17 [History Confirmed 10/11/21 Last Taken Unknown] isosorbide mononitrate 30 mg tablet,extended release 24 hr 30 mg PO QAM 12/15/19 [History Confirmed 10/11/21 Last Taken Unknown] vitamin B complex-vitamin C-folic acid 0.8 mg tablet (Nephro-Darrian) 1 tab PO QDAY #90 tab 03/22/21 [Rx Confirmed 10/11/21 Last Taken Unknown] losartan 100 mg tablet 100 mg PO QDAY #90 tab 04/03/21 [Rx Confirmed 10/11/21 Last Taken Unknown] sevelamer carbonate 800 mg tablet (Renvela) 800 mg PO TID #270 tab 04/21/21 [Rx Confirmed 10/11/21 Last Taken Unknown] calcium acetate(phosphat bind) 667 mg capsule 667 mg PO TID #90 cap 06/26/21 [Rx Confirmed 10/11/21 Last Taken Unknown] torsemide 20 mg tablet 20 mg PO QDAY #90 tab 08/07/21 [Rx Confirmed 10/11/21 Last Taken Unknown] amlodipine 10 mg tablet 10 mg PO QDAY #90 tab 09/04/21 [Rx Confirmed 10/11/21 Last Taken Unknown] apixaban 5 mg tablet 2.5 mg PO BID 10/11/21 [History Confirmed 10/11/21 Last Taken Unknown] COURSE Hospital Course Hospital course: Discharge diagnosis * Flash pulmonary edema-secondary volume overload, dramatic clinical improvement following hemodialysis and fluid removal, advised to minimize fluid intake in between dialysis. Discharging with continued outpatient dialysis follow nephrology * Acute respiratory failure with hypoxia, off NIV * Hypertensive crisis with pul edema, clinically resolved. Off nitro drip. Back on home dose antihypertensives * History of CAD on isosorbide/statin/aspirin/apixaban * GERD on PPI * Anxiety disorder continue quetiapine * Tobacco dependence with over 30 pack history of smoking. Brief hospital course Mr. Salmon is a 51 year old M with history of ESRD on HD secondary to chronic VUR sequela, CAD status post NSTEMI/cardiac arrest 2016, HTN, HLD, who presents to the ER after starting to experience sudden worsening shortness of breath that started around 230 this morning. Symptoms dramatically progressed prompting him to come to the ER for evaluation. Initial work-up essentially was ear was consistent with hypertensive crisis with blood pressure over 200, pulmonary edema on chest imaging. Patient was hypoxic and was started on noninvasive ventilation for increased work of breathing and hypoxia. Additionally started on nitro drip and subsequently nephrology was consulted who accepted patient for urgent hemodialysis His last hemodialysis was 2 days ago. Patient denies changes in medication, missing his regular medications, fever, chills, productive sputum. Hospitalist service at [facility] was consulted due to lack of availability of dialysis at [facility]. Patient received at [facility] via ground ambulance in stable state on nitro drip. Blood pressure 140. Currently on BiPAP. Doing a lot better and able to talk in near full sentences. Emergent hemodialysis being set up. He was able to endorse history as above and denies diarrhea, bloody stool, headache, myalgia or joint pain 10/12-patient doing a lot better. No overnight events. No concerns per nursing staff, dialyzed in excess of 5000 cc removed. Now on 2 L oxygen. Off nitro drip. Hemodynamics have stabilized. This morning denies chest pain, lightheadedness dizziness. Able to ambulate. Anticipate discharge in 24 hours with continued hemodialysis. Case discussed with nephrology. Systolics around 150. 10/13 patient doing a lot better. Overnight on 2 L oxygen. Discharging today with outpatient dialysis and continued follow-up with nephrology. Denies chest pain shortness of breath. No orthopnea. Feels at baseline. Recommend continued follow-up Discharge diagnosis: . Time Spent with Patient Time attestation: Total time spent providing and/or coordinating discharge services: EXAM Constitutional Vitals: Temp Pulse Resp BP Pulse Ox 97.2 F 87 15 157/88 93 10/13/21 06:46 10/13/21 06:46 10/13/21 06:46 10/13/21 06:46 10/13/21 06:46 Discharge Data Data Completed and Pending Labs on day of discharge: Labs from last 24 hours 10/13/21 10/13/21 05:38 05:38 WBC 6.5 RBC 3.17 L Hgb 9.8 L Hct 29.8 L MCV 94.0 MCH 30.9 MCHC 32.9 RDW 13.0 Plt Count 204 MPV 9.6 Neut % (Auto) 60.2 Lymph % (Auto) 20.8 [place] % (Auto) 11.3 Eos % (Auto) 6.9 Baso % (Auto) 0.8 Lymph # (Auto) 1.35 L [place] # (Auto) 0.73 Eos # (Auto) 0.45 Baso # (Auto) 0.05 Absolute Neutrophils 3.90 Sodium 127 L Potassium 4.7 Chloride 90 L Carbon Dioxide 23 Anion Gap 14.0 BUN 26 H Creatinine 7.6 H* GFR Calculation 7 Glucose 87 Uric Acid 3.9 Calcium 8.8 Phosphorus 4.4 Magnesium 2.6 H Total Bilirubin 0.3 Direct Bilirubin < 0.2 GGT 20 AST 14 ALT 11 Alkaline Phosphatase 128 H Lactate Dehydrogenase 220 Total Protein 5.9 Albumin 3.2 Globulin 2.7 Albumin/Globulin Ratio 1.2 Triglycerides 68 Discharge Plan Patient/Caregiver Discharge Instructions Activity: increase activity as tolerated Diet: Renal Activity Restrictions/Additional Instructions: Follow-up with PCP in 5 to 7 days Continue hemodialysis as advised Minimize fluid intake in between dialysis to prevent overload Prescriptions: Continued quetiapine [Seroquel] 100 mg tablet 100 mg PO QHS 0RF Label Comments: Avoid alcohol omeprazole 20 MG capsule 20 mg PO BID 0RF atorvastatin 40 mg tablet 40 mg PO QDAY 0RF Nephro-Darrian 0.8 mg tablet 1 tab PO QDAY Qty: 90 3RF losartan 100 mg tablet 100 mg PO QDAY Qty: 90 3RF sevelamer carbonate [Renvela] 800 mg tablet 800 mg PO TID Qty: 270 12RF calcium acetate(phosphat bind) 667 mg capsule 667 mg PO TID Qty: 90 5RF torsemide 20 mg tablet 20 mg PO QDAY Qty: 90 3RF amlodipine 10 mg tablet 10 mg PO QDAY Qty: 90 3RF isosorbide mononitrate 30 mg tablet extended release 24 hr 30 mg PO QAM 0RF apixaban 5 mg tablet 2.5 mg PO BID 0RF Follow Up Plan Follow up with: Eugenie Guerrero MD [Primary Care Provider] - Patient Disposition: Home, Self-Care Rehab Potential: Good I certify that the patient requires SNF services: No Overall status at discharge: patient is progressing back to baseline Discharge Orders: Discharge Order (Routine); Ordered 10/13/21 Ordered By: Jose Elias Sanders
== END 2021-10-13 09:40 | disposition home or self-care (01) ==
LOC: ICU 08:17 → MEDSUR 10-12 13:19
PROVIDERS: ADMIT Internal Medicine; ATTEND Internal Medicine